=== PATIENT | male | born 2005 | race Caucasian/White ===

== ENCOUNTER 2024-01-01 00:03 | Emergency (ER) | payer BC, SELFPAY ==
[2024-01-01 00:13] VITALS: BP 154/74; PULSE 76; RESP 16; TEMP 36.3; O2SAT 98; BMI 22.3
[2024-01-01 00:54] LABS: Strep A DNA Probe* NOT DETECTED (Not Detectd)
--- OUTSIDE RECORDS SUMMARY | 2024-01-01 01:02 | XMS_ITS | Referral Summary ---
Author Organization [facility] Address [address] [place] [address] Phone Care Team Providers Care Spouting Installer Name Role Phone Unavailable Primary Care Provider Unavailabl e Social History Tobacco Use Types Packs/Day Years Used Date Smoking Tobacco: Never Assessed Sex and Gender Information Value Date Recorded Sex Assigned at Not on file Gender Identity Not on file Sexual Orientation Not on file Plan of Treatment Not on file
--- OUTSIDE RECORDS SUMMARY | 2024-01-01 01:02 | XMS_ITS | Clinical Summary ---
Author Organization [facility] Address [address] [place] [address] Phone Care Team Providers Care Panel Lay Up Worker Name Role Phone Unavailable Primary Care Provider Unavailabl e Social History Tobacco Use Types Packs/Day Years Used Date Smoking Tobacco: Never Assessed Sex and Gender Information Value Date Recorded Sex Assigned at Not on file Gender Identity Not on file Sexual Orientation Not on file Plan of Treatment Not on file
--- NOTE | 2024-01-01 01:06 | ED.GENADULT ---
HPI - General Adult General Date Seen: 01/01/24 Chief complaint: Sore Throat Stated complaint: sore throat Time Seen by Provider: 01/01/24 00:20 Source: patient Mode of arrival: ambulatory Limitations: no limitations History of Present Illness HPI narrative: Patient is a 18-year-old male who comes in with a sore throat for the past seven days. He was better for a couple of days and then worse again for the past three days. He has had some chills but no documented fever. No runny nose or cough. No known exposures. He has no chronic health problems and takes no medications regularly. Related Data Home Medications ?Medication ?Instructions ?Recorded ?Confirmed No Known Home Medications 01/01/24 01/01/24 Allergies Allergy/AdvReac Type Severity Reaction Status Date / Time No Known Drug Allergies Allergy Verified 01/01/24 00:16 Review of Systems Narrative: Review of systems is as outlined above otherwise noted to be negative. Exam Narrative: Exam Narrative: Vitals noted. HEENT: Conjunctiva clear. Tympanic membranes are pearly white bilaterally. Posterior pharynx is erythematous without exudate. Tonsils are enlarged. Neck is supple without adenopathy. Lungs: Clear to auscultation in all zarate. No wheezes, rales, rhonchi. Heart: Regular rate and rhythm without murmur. Abdomen: Soft and nontender. No guarding, rigidity, rebound. Bowel sounds are normal. No palpable masses. Extremities: No cyanosis or edema. Good distal pulses. Skin: No abnormalities noted of the exposed skin. Neurologic: Awake, alert, fully oriented. Neurologic exam is nonfocal. Const: Vital Signs, click to edit/add: Vital Signs - 24 hr 01/01/24 00:13 Temperature 97.4 F L Pulse Rate [Left P ulse Oximeter] 76 Respiratory Rate 16 Blood Pressure [Ri ght Upper Arm] 154/74 H Pulse Oximetry 98 Oxygen Delivery Me thod Room Air Course Course ED Course: Patient was seen and examined. Strep DNA is negative. Vital Signs Vital signs: Initial Vital Signs Temperature 97.4 F L 01/01/24 00:13 Temperature Source Temporal Artery Scan 01/01/24 00:13 Pulse Rate 76 01/01/24 00:13 Pulse Rhythm Regular 01/01/24 00:13 Respiratory Rate 16 01/01/24 00:13 Blood Pressure 154/74 H 01/01/24 00:13 Blood Pressure Mean 100 01/01/24 00:13 Blood Pressure Position Sitting 01/01/24 00:13 Pulse Oximetry 98 01/01/24 00:13 Oxygen Delivery Method Room Air 01/01/24 00:13 Vital Signs Temperature 97.4 F L 01/01/24 00:13 Pulse Rate 76 01/01/24 00:13 Respiratory Rate 16 01/01/24 00:13 Blood Pressure 154/74 H 01/01/24 00:13 Pulse Oximetry 98 01/01/24 00:13 Oxygen Delivery Method Room Air 01/01/24 00:13 Temperature 97.4 F L 01/01/24 00:13 Pulse Rate 76 01/01/24 00:13 Respiratory Rate 16 01/01/24 00:13 Blood Pressure 154/74 H 01/01/24 00:13 Pulse Oximetry 98 01/01/24 00:13 Oxygen Delivery Method Room Air 01/01/24 00:13 Medical Decision Making Lab Data Labs: Lab Results 01/01/24 Range/Units 00:20 Group A Strep DNA NOT DETECTED (Not Detectd) Discharge Plan Discharge Clinical Impression: Pharyngitis Patient Disposition: Home, Self-Care Condition: Stable Additional Instructions: Rest, fluids, Tylenol or ibuprofen for pain. Amoxicillin 500 mg 3 times daily for 10 days. Follow-up if symptoms are worsening or not improving. Prescriptions: No Action No Known Home Medications Follow Up/Referrals: Provider,Not a Local [Primary Care Provider] - Stand Alone Forms: [facility] Info Instructions
== END 2024-01-01 01:10 | disposition home or self-care (01) ==
PROVIDERS: Emergency Provider Family Medicine
DX: J02.9 Acute pharyngitis, unspecified (principal)
CPT/HCPCS: 87651; 99281; 99283